=== PATIENT | female | born 1935 | race Caucasian/White ===

== ENCOUNTER 2020-04-17 09:47 | Observation (INO) ==
--- NOTE | 2020-04-17 11:15 | Emergency Department Note ---
Impression & Plan Dizziness, Right arm weakness, Left thalamic infarction ED Provider Note INFORMANT: Patient ED PROVIDER(S): Cameron Clemons MD CHIEF COMPLAINT: Right arm weakness PLAN: Disposition: Admitted Condition: Good MEDICAL DECISION MAKING: Patient presented complaining of vague symptoms but also noting over the last week of having right arm weakness and numbness. She underwent a neurologic work-up. The patient's CBC, chemistry panel, urinalysis were normal. The patient's EKG was a normal sinus rhythm. Cardiac monitoring was unremarkable. CT imaging unfortunately revealed an age-indeterminate left thalamic infarct. Given her symptoms being on the right and finding this possible infarct on the left side further management will be necessary. I discussed the work-up in the hospital with patient and daughter. The patient was given aspirin. [facility] Triage Nursing notes reviewed and agree them. Additional history obtained from patient's daughter. Vital Signs: reviewed and remarkable for no significant abnormalities Differential diagnosis: CVA, TIA, mass, Infection, dehydration, metabolic abnormality, hypo/hyperglycemia, electrolyte disturbance, anemia, hypoxia, cardiac sources, intracerebral event, toxicologic, neurologic, as well as other pathologies. Diagnostics interpreted by me: ECG: Rate: 74 Rhythm:Normal sinus [place]:Normal QRS:Normal ST segements:No elevation or depression Other:No PACs or PVCs Cardiac Monitoring: Cardiac monitoring ordered by me: The patient was placed on continuous cardiac monitoring and observed. It revealed a normal sinus rhythm at 78 beats per minute without ectopy or evidence of dysrhythmia. Imaging studies: Chest x-ray. Findings: A chest x-ray was performed and revealed no pneumothorax, effusion, infiltrate, pulmonary edema, free air under the diaphragm, or wide mediastinum. Head CT: A noncontrast CT scan of the head was performed and was negative for tumor, fracture, intracranial hemorrhage, or other acute pathology. Consultation(s): [facility], Dr. Terry HPI: The patient is a 84 year old female who presents to the Emergency Room with complaints of dizziness. This started months ago and is waxing and waning. The patient also notes the following associated symptoms, right arm weakness over the same period, right 5th finger tingling. The patient has taken no medication for relieving factors. Current pain is rated as 0/10. Called PCP office and directed pt and family to ER for evaluation. Pt denies LOC, headache, fevers, chills, diaphoresis, visual changes, slurred speech, neck pain, chest pain, breathing difficulties, nausea, vomiting, abdominal pain, back pain, melena, hematochezia, urinary symptoms, lymphadenopathy, rash, or other complaints. ROS: See above HPI for pertinent positives & negatives. A total of 10 systems reviewed and were otherwise negative. PAST MEDICAL HISTORY:See Below, tuberculosis, HTN PAST SURGICAL HISTORY:See Below, lung resection FAMILY HISTORY:See Below SOCIAL HISTORY:See Below, lives alone HOME MEDICATIONS:See Below ALLERGIES:See Below VITALS:See Below PHYSICAL EXAMINATION: GENERAL: Awake, alert, age appropriate-appearing, in no distress HENT: Normocephalic, atraumatic. Oropharynx unremarkable. EYES: Normal conjunctiva. Sclera non-icteric. PERRL, EOMI NECK: Inspection normal. Non-tender. Supple. No nuchal rigidity. FROM. No masses. RESPIRATORY: Clear to auscultation. No wheezes. No rales. Normal respiratory effort. CARDIAC: Normal rate. Normal rhythm. No murmurs. No rubs. Extremities warm and well perfused. Pulses equal. No JVD. GI: Soft, non-distended. No tenderness to palpation. No rebound or guarding. No masses. RECTAL: Deferred. MUSCULOSKELETAL: Atraumatic. Chest examination reveals no tenderness. The back is symmetrical on inspection without obvious abnormality. There is no CVA tenderness to palpation. No joint edema. LOWER EXTREMITIES: Calves are equal size bilaterally and non-tender. No edema. No discoloration. NEURO: Normal sensorium. No sensory or motor deficits noted. No drift. SKIN: No rash or jaundice noted. Cameron Clemons MD Past Med/Surg History Social History Smoking Status: Never smoker Preferred Language: Swiss Feels Safe at Home: Yes Allergies Allergies Allergy/AdvReac Type Severity Reaction Status Date / Time No Known Allergies Allergy Unverified 04/17/20 12:08 Home Meds Home Medications Medication Instructions Recorded Confirmed amlodipine 5 mg PO QAM 04/17/20 04/17/20 atorvastatin 10 mg PO QAM 04/17/20 04/17/20 Results & Data (ED) Vital Signs Vital Signs - 24 hr 04/17/20 10:08 04/17/20 11:24 04/17/20 12:20 Temperature 36.3 C L Temperature Source Oral Pulse Rate - Lying 78 Pulse Rate - Sitting 85 Pulse Rate - Standing 95 H Pulse Rate 79 Pulse Rate [Left] 72 Pulse Rhythm Regular Pulse Strength Normal Respiratory Rate 18 20 Respiratory Effort / Characteristics Non-Labored Spontaneous Respiratory Depth Normal Respiratory Pattern Regular Blood Pressure - Lying 171/93 H Blood Pressure - Sitting 161/93 H Blood Pressure- Standing 154/84 H Blood Pressure 165/81 H Blood Pressure [Left Arm] 178/83 H Blood Pressure Mean 109 Blood Pressure Mean [Left Arm] 114 Blood Pressure Position Sitting Pulse Oximetry 97 98 Oxygen Delivery Method Room Air Sepsis Recent Fever Within 48 Hours No Sepsis New/Unexplained Change in Mental Status No Sepsis Action Taken by Nursing No Action Required 04/17/20 13:40 Temperature Temperature Source Pulse Rate - Lying Pulse Rate - Sitting Pulse Rate - Standing Pulse Rate Pulse Rate [Left] 72 Pulse Rhythm Pulse Strength Respiratory Rate 20 Respiratory Effort / Characteristics Respiratory Depth Respiratory Pattern Blood Pressure - Lying Blood Pressure - Sitting Blood Pressure- Standing Blood Pressure Blood Pressure [Left Arm] 160/76 H Blood Pressure Mean Blood Pressure Mean [Left Arm] 104 Blood Pressure Position Pulse Oximetry 98 Oxygen Delivery Method Sepsis Recent Fever Within 48 Hours Sepsis New/Unexplained Change in Mental Status Sepsis Action Taken by Nursing Laboratory Data Result diagrams: 04/17/20 11:15 04/17/20 11:15 Lab Results 04/17/20 04/17/20 04/17/20 Range/Units 11:15 11:15 11:30 WBC 8.26 (4.8-10.8) K/uL RBC 4.75 (4.2-5.4) M/uL Hgb 14.4 (12.0-16.0) g/dL Hct 43.4 (37-47) % MCV 91.4 (80-100) fL MCH 30.3 (25-34) pg MCHC 33.2 (32-36) g/dL RDW Std Deviation 44.3 (36.4-46.3) fL RDW Coeff of Terry 13.2 (11.5-14.5) % Plt Count 212 (130-400) K/uL MPV 10.9 H (7.4-10.4) fL Immature Gran % (Auto) 0.2 % Neut % (Auto) 80.2 % Lymph % (Auto) 13.4 % [place] % (Auto) 5.2 % Eos % (Auto) 0.8 % Baso % (Auto) 0.2 % Neut # (Auto) 6.61 H (1.4-6.5) K/uL Lymph # (Auto) 1.11 L (1.2-3.4) K/uL [place] # (Auto) 0.43 (0.11-0.59) K/uL Eos # (Auto) 0.07 (0-0.5) K/uL Baso # (Auto) 0.02 (0-0.2) K/uL Immature Gran # (Auto) 0.02 (0.00-0.02) K/uL Sodium 136 (136-145) mmol/L Potassium 4.6 (3.5-5.1) mmol/L Chloride 106 (98-107) mmol/L Carbon Dioxide 22 (21-32) mmol/L Anion Gap 8.0 (3-11) BUN 12 (7-18) mg/dl Creatinine 0.94 (0.6-1.2) mg/dl Est Cr Clr Drug Dosing 40.1 ml/min Est GFR ( Amer) 64.6 Est GFR (Non-Af Amer) 55.7 BUN/Creatinine Ratio 12.6 (10-20) Glucose 221 H (70-99) mg/dl Calcium 9.6 (8.5-10.1) mg/dl Magnesium 2.0 (1.8-2.4) mg/dl Total Bilirubin 0.6 (0.2-1) mg/dl AST 22 (15-37) U/L ALT 31 (12-78) U/L Alkaline Phosphatase 98 (45-117) U/L Troponin I < 0.015 (0-0.045) ng/ml Total Protein 7.6 (6.4-8.2) gm/dl Albumin 3.7 (3.4-5.0) gm/dl Globulin 3.9 (2.5-4.0) gm/dl Albumin/Globulin Ratio 0.9 (0.9-2) TSH 2.520 (0.300-4.500) uIu/ml Specimen Hemolysis Urine Color Yellow Urine Appearance Clear (Clear) Urine pH 5.0 (4.5-7.5) Ur Specific [place] 1.025 (1.000-1.030) Urine Protein Negative (Negative) Urine Glucose (UA) 3+ H (Negative) Urine Ketones Negative (Negative) Urine Blood Negative (Negative) Urine Nitrite Negative (Negative) Urine Bilirubin Negative (Negative) Urine Urobilinogen Negative (Negative) Ur Leukocyte Esterase Trace H (Negative) Urine WBC (Auto) 1-5 (0-5) /hpf Urine RBC (Auto) 0-4 (0-4) /hpf U Hyaline Cast (Auto) 1-5 (0-5) /lpf U Epithel Cells (Auto) >30 H (0-5) /lpf Urine Bacteria (Auto) Negative (Negative) Administered Medications Discontinued Medications Aspirin (Aspirin 81 Mg Chew) 324 mg PO NOW STA Stop: 04/17/20 14:06 Last Admin: 04/17/20 14:51 Dose: 324 mg Documented by: [id number] Aspirin (Aspirin Chew 324 Mg) 324 mg PO NOW STA Stop: 04/17/20 14:38 Last Admin: 04/17/20 14:51 Dose: Not Given Documented by: [id number] Discharge Plan Visit Data Chief Complaint: Neuro Symptoms/Deficit Stated Complaint: VERTIGO, RT ARM PAIN, TINGLING RT PINKIE FINGER ED Provider: Cameron Clemons Discharge Problem: Dizziness, Right arm weakness, Left thalamic infarction Forms Stand Alone Forms: My [facility] Prescriptions Prescriptions: No Action atorvastatin 10 mg tablet 10 mg PO QAM RF: 0 amlodipine 5 mg tablet 5 mg PO QAM RF: 0
[2020-04-17 11:40] LABS: Basophils # (auto) 0.02 K/uL (0-0.2); Basophils % (auto) 0.2 %; Eosinophils # (auto) 0.07 K/uL (0-0.5); Eosinophils % (auto) 0.8 %; Hematocrit (blood only) 43.4 % (37-47); Hemoglobin 14.4 g/dL (12.0-16.0); Immature Granulocytes # (auto) 0.02 K/uL (0.00-0.02); Immature Granulocytes % (auto) 0.2 %; Lymphocytes # (auto) 1.11 K/uL (1.2-3.4); Lymphocytes % (auto) 13.4 %; Mean Corpuscular Hemoglobin 30.3 pg (25-34); Mean Corpuscular Hgb Conc 33.2 g/dL (32-36); Mean Corpuscular Volume 91.4 fL (80-100); Mean Platelet Volume 10.9 fL (7.4-10.4); Monocytes # (auto) 0.43 K/uL (0.11-0.59); Monocytes % (auto) 5.2 %; Neutrophils # (auto) 6.61 K/uL (1.4-6.5); Neutrophils % (auto) 80.2 %; Platelet Count 212 K/uL (130-400); RDW Coefficient of Variation 13.2 % (11.5-14.5); RDW Standard Deviation 44.3 fL (36.4-46.3); Red Blood Count 4.75 M/uL (4.2-5.4); White Blood Count 8.26 K/uL (4.8-10.8)
[2020-04-17 11:50] LABS: Appearance Urine Clear (Clear); Bacteria Urine Automated Negative (Negative); Bilirubin Urine Negative (Negative); Blood Urine Negative (Negative); Color Urine Yellow; Epithelial Cell Urine Auto >30 /lpf (0-5); Glucose Urine UA 3+ (Negative); Ketones Urine Negative (Negative); Leukocyte Esterase Urine Trace (Negative); Nitrite Urine Negative (Negative); Protein Urine Negative (Negative); RBC Urine Automated 0-4 /hpf (0-4); Specific Gravity Urine 1.025 (1.000-1.030); Urobilinogen Urine Negative (Negative)
--- NOTE | 2020-04-17 12:07 | XRay Report ---
XR chest 1V portable CLINICAL HISTORY: weakness COMPARISON STUDY: Chest radiograph May 09, 2019. FINDINGS: The patient is rotated. There are suspected postoperative findings within the left hemithor ax. Mild left apical pleural opacity is unchanged. There is no consolidation to suggest pneumonia and there is no evidence for pulmonary edema. Cardiomediastinal silhouette is stable. IMPRESSION: No acute cardiopulmonary findings. No significant change in appearance of the chest. ACT 112: Negative or not required by law. Electronically signed by: Agustin Romero M.D. 04/17/2020 12:06 PM
--- NOTE | 2020-04-17 12:10 | CT Scan Report ---
CT SCAN OF THE BRAIN WITHOUT IV CONTRAST CLINICAL HISTORY: Right-sided weakness. COMPARISON STUDY: No priors. TECHNIQUE: Unenhanced axial CT scan of the brain is performed from the vertex to the skull base. A do se lowering technique was utilized adhering to the principles of ALARA. CT DOSE: 638.56 mGycm FINDINGS: Brain parenchyma: There are age-related involutional changes noting moderate subcortical and periven tricular microangiopathic change. There is no hemorrhage, mass effect, or evidence of acute territori al ischemia by CT criteria. Chronic lacunar infarcts identified in the cerebellum. There is an age in determinant lacunar infarct in the left thalamus. Roberts-white matter differentiation is preserved. No extra-axial fluid collection is seen. Ventricles, sulci, cisterns: Prominent secondary to involutional change. Intracranial vasculature: There is atherosclerotic calcification of the cavernous carotid and vertebr al arteries. Calvarium: Unremarkable. Sinuses and mastoids: The visualized paranasal sinuses are clear. The mastoid air cells are well pneu matized. Orbits: The bony orbits are grossly intact. IMPRESSION: 1 There is no hemorrhage, mass effect, or evidence of acute territorial ischemia by CT criteria. 2. There is an age indeterminant lacunar infarct in left thalamus. ACT 112: Negative or not required by law. Electronically signed by: Arron Nicholas M.D. 04/17/2020 12:08 PM
[2020-04-17 12:17] LABS: Alanine Aminotransferase 31 U/L (12-78); Albumin Globulin Ratio 0.9 (0.9-2); Albumin Level 3.7 gm/dl (3.4-5.0); Alkaline Phosphatase 98 U/L (45-117); Aspartate Aminotransferase 22 U/L (15-37); BUN Creatinine Ratio 12.6 (10-20); Bilirubin,Total 0.6 mg/dl (0.2-1); Blood Urea Nitrogen 12 mg/dl (7-18); Calcium 9.6 mg/dl (8.5-10.1); Carbon Dioxide 22 mmol/L (21-32); Chloride 106 mmol/L (98-107); Creatinine Clr Calc Pharmacy 40.1 ml/min; Est GFR (African American) 64.6; Est GFR (Non-African American) 55.7; Globulin 3.9 gm/dl (2.5-4.0); Glucose 221 mg/dl (70-99); Potassium 4.6 mmol/L (3.5-5.1); Sodium 136 mmol/L (136-145); Total Protein 7.6 gm/dl (6.4-8.2); Troponin I < 0.015 ng/ml (0-0.045)
[2020-04-17] MEDS ORDERED: ASPIRIN 81 MG CHEW PO STA (14:05)
[2020-04-17] MEDS ORDERED: ASPIRIN 81 MG ECTAB PO STA (14:05)
[2020-04-17] MEDS ORDERED: ASPIRIN CHEW 324 MG PO STA (14:37)
--- NOTE | 2020-04-17 15:22 | History & Physical Report ---
Date of Service April 17, 2020 Assessment & Plan (1) Left thalamic infarction: Unclear when she had her stroke. Given worsening of her balance suddenly yesterday we will for a full stroke work-up. CTA head and neck MRI without contrast TTE HbA1c and lipid panel in a.m. Aspirin 324 mg p.o. given in ER. Start 81 mg p.o. daily. Continue her usual atorvastatin 10 mg p.o. every morning pending LDL in a.m. High intensity statin not required due to advanced age. PT/OT/speech eval Consult neurology (2) Right arm weakness: Suspect secondary to above. Suspect arm pain is secondary to weakness and likely she had a stroke like events 6 months ago and possibly additional one 2 months ago. (3) Imbalance: Suspect secondary to left thalamic infarction above. We will also get B12 level in a.m. to rule this out as a cause. 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 Not currently present on exam. Possibly related to left thalamic infarction as well. (5) Hyperglycemia: HbA1c with a.m. labs No known diagnosis of diabetes but also has glucosuria in urine. BSG ACHS. Insulin sliding scale for correction only (6) Hypertension: Continue amlodipine 5 mg p.o. every morning Hydralazine 5 mg IV every 4 hourly as needed for systolic blood pressure > 180. (7) Hyperlipidemia: Continue atorvastatin as above (8) DVT prophylaxis: Falls risk with her imbalance therefore no SCDs. Given ambulatory and currently at baseline will defer chemical prophylaxis. Admission and Anticipated Discharge Date Admission Date: April 17, 2020 History of Present Illness Chief Complaint: Imbalance, right hand change in sensation, right arm weakness Primary Care Provider: JUAN PABLO Fletcher Milady Alexandre is an 84-year-old female who presents to the ER with her daughter due to dizziness and ataxia. The patient has short term memory loss therefore history is taken mostly from her daughter. Initial symptoms of ataxia and dizziness occurring intermittently for the last 6 months but getting more frequently recently. Had a sudden worsening episode yesterday while walking. No lightheadedness, dizziness or vertigo just appeared to be off balance. Therefore she called her PCP office today who recommended she came to the ER for further evaluation. Associated symptom of right arm weakness/pain over a similar time frame which also appears to be getting worse but also intermittent. Finding it more difficult to carry anything. She has been to see Dr Kilpatrick in neurology clinic due to some short term memory loss approximately 2 months ago but her symptoms have significantly progressed since this. In the last 2 weeks she has been having new right fifth finger numbness/tingling. Currently however she denies any right arm pain or numbness/tingling in her fingers. When she is off balance she does not appear to be falling to one side. No change in hearing, vision, speech, headache, fever or chills. SHe lives alone but has close family support from her daughter. Allergies Allergy/AdvReac Type Severity Reaction Status Date / Time No Known Allergies Allergy Unverified 04/17/20 12:08 Home Medications Home Medications Medication Instructions Recorded Confirmed Type amlodipine 5 mg PO QAM 04/17/20 04/17/20 History aspirin 81 mg PO DAILY #30 tab 04/18/20 Rx atorvastatin 20 mg PO DAILY #30 tab 04/18/20 Rx clopidogrel 75 mg PO DAILY 21 Days #21 tab 04/18/20 Rx cyanocobalamin (vitamin B-12) 1,000 mcg PO DAILY #30 cap 04/18/20 Rx metformin 1,000 mg PO BID #120 tab 04/18/20 Rx Past Med/Surg History Medical History (Updated 04/19/20 @ 00:03 by Background Saw) Hyperlipidemia Hypertension Type 2 diabetes mellitus Social History Smoking Status: Never smoker Hx Alcohol Use: No Hx Substance Use: No Preferred Language: Korean Communication Ability: Effective Classification Case Manager Required: No Beliefs That Will Affect Care: None marital status: Unknown Current Living Situation: Alone Current Living Situation Comment: Lives at home alone, daughter helps with care Other Information That Helps Us Care for You: No Feels Safe at Home: Yes Safety Concerns: Feels Safe At This Time Assistive Devices: None Assistive Devices Comment: Upper partial Review of Systems Review of Systems: All systems reviewed & are unremarkable except as noted in HPI & below Physical Exam Constitutional: WD/WN, vitals as above Eyes: PERRL, conjunctivae normal, anicteric sclerae ENMT: external ear and nose normal, oropharynx normal Neck: trachea midline, no thyromegaly Respiratory: normal respiratory effort, lungs clear to auscultation Cardiovascular: RRR, no murmur, no edema Gastrointestinal (Abdomen): normal bowel sounds, soft, nontender, no hepatosplenomegaly Musculoskeletal: no cyanosis or clubbing, extremities motor strength 5/5 Skin: no rashes, warm and dry Neurologic: patellar DTR's 2+ bilat, sensation intact CN's II-XI intact bilaterally, moves all extremities, + focal motor deficit (proximal RUE weakness) and awake; not confused Motor/Sensory: + pronator drift (RUE weakness); no tremor and no sensory deficit Coordination: + abnormal [id number] test (RUE weakness) Psychiatric: Orientation: alert and oriented x 3 Eye Contact: good eye contact Speech: normal rate/rhythm/volume of speech Affect: euthymic affect Genitourinary: no CVA tenderness Lymphatic: no cervical or axillary lymphadenopathy Results & Data Results & Data ([facility] Vital Signs (Past 12 Hours) Vital Signs Temp Pulse Pulse Resp BP BP Pulse Ox 04/17/20 13:40 72 20 160/76 H 98 04/17/20 11:24 72 20 178/83 H 98 04/17/20 10:08 36.3 C L 79 18 165/[address] SCAN OF THE BRAIN WITHOUT IV CONTRAST IMPRESSION: 1 There is no hemorrhage, mass effect, or evidence of acute territorial ischemia by CT criteria. 2. There is an age indeterminant lacunar infarct in left thalamus. XR chest 1V portable IMPRESSION: No acute cardiopulmonary findings. No significant change in appearance of the chest. ECG Indication: other (Dizziness) Rate (beats per minute): 74 Rhythm: normal sinus Findings: no acute ischemic change Comparison ECG Date: no prior available Code Status & VTE Plan Code Status Full VTE Prophylaxis Plan VTE Prophylaxis will be ordered: Yes PG Care Time/CCT Total # of Minutes Spent Total Time Spent with Patient: Total time spent is greater than 50% in coordination of care (as documented) at patient's floor/unit and/or counseling patient: Coding Level of Care Code 53944 Initial Inpt Care Lvl 3 Diagnoses Left thalamic infarction I63.9 Right arm weakness R29.898 Imbalance R26.89 Neuropathy of finger of right hand G56.91 Hyperglycemia R73.9 Hypertension I10 Hyperlipidemia E78.5 DVT prophylaxis Z29.9
[2020-04-17] MEDS ORDERED: ACETAMINOPHEN 325 MG TAB PO PRN (16:29)
[2020-04-17] MEDS ORDERED: PHARMACIST DISCHARGE MED REC CONSULT PRN (16:29)
[2020-04-17] MEDS ORDERED: ONDANSETRON INJ 2 MG/ML 2 ML VIAL IV PRN (16:29)
[2020-04-17] MEDS ORDERED: GLUCOSE 10 TABS/TUBE PO PRN (17:44)
[2020-04-17] MEDS ORDERED: DEXTROSE 50% 50 ML SYRINGE IV PRN (17:44)
[2020-04-17] MEDS ORDERED: CARBOHYDRATES FOR HYPOGLYCEMIA PO PRN (17:44)
[2020-04-17] MEDS ORDERED: GLUCAGON FOR INJ 1 MG VIAL SQ PRN (17:44)
[2020-04-17] MEDS ORDERED: GLUCOSE 40% GEL 15 GM TUBE PO PRN (17:44)
[2020-04-17] MEDS ORDERED: OPTIRAY 320 125ml IV ONE (18:49)
--- NOTE | 2020-04-17 19:23 | CT Scan Report ---
CT angio neck with con CLINICAL HISTORY: Thalamic stroke COMPARISON STUDY: No previous studies for comparison. TECHNIQUE: CT angiography was performed from the aortic arch to the skull base. MIP imaging was perfo rmed. The patient was scanned in a dynamic helical fashion during intravenous administration of 120 c c of Optiray 320. A dose lowering technique was utilized adhering to the principles of ALARA. CT DOSE: Technique: CT angiogram of the carotid and vertebral arteries was obtained using intravenous contrast and 3-D reconstruction. NASCET criteria was utilized. Findings: There is mild ectasia of the thoracic aortic arch The right carotid revealed no evidence of aneurysm and no evidence of dissection. There is no evidenc e of hemodynamic significant stenosis. The left carotid revealed no evidence of hemodynamic significant stenosis. There is no evidence of an eurysm. There is no evidence of dissection. There is a 40% diameter stenosis of the left vertebral at the level of the foramen magnum. There is n o evidence of right vertebral artery stenosis. There is a multinodular thyroid gland IMPRESSION: 1. No evidence of hemodynamically significant carotid stenosis 2. 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 ACT 112: Negative or not required by law. Electronically signed by: Adan Forrest M.D. 04/17/2020 7:21 PM
--- NOTE | 2020-04-17 19:25 | CT Scan Report ---
CT angio head w con CLINICAL HISTORY: Left lacunar thalamic stroke TECHNIQUE: CT angiography of the head was performed in a dynamic helical fashion during intravenous a dministration of 120 cc of Optiray 320. MIP imaging was performed. A dose lowering technique was util ized adhering to the principles of ALARA. CT DOSE: 860.42 mGycm COMPARISON STUDY: No previous studies for comparison. FINDINGS: There are no lesion suspicious for aneurysm. There are no major intracranial branch occlusi ons. The dural venous sinuses appear patent. There is a 40% stenosis of the left vertebral the level the foramen magnum. IMPRESSION: 1. 40% diameter stenosis of the distal left vertebral artery 2. No evidence of aneurysm. No evidence of major intracranial branch occlusion. ACT 112: Negative or not required by law. Electronically signed by: Adan Forrest M.D. 04/17/2020 7:24 PM
--- NOTE | 2020-04-17 20:59 | Magnetic Resonance Report ---
MRI OF THE BRAIN WITHOUT CONTRAST CLINICAL HISTORY: Right arm weakness COMPARISON STUDY: CT scan dated 04/17/2020 FINDINGS: Sagittal T1, axial diffusion, proton density and T2 weighted axial, coronal FLAIR, and axial T1-weigh kendrick images were acquired. No intra or extra-axial mass lesions are visualized There is a 6 mm focus of restricted water diffusion within the left thalamus, consistent with a small acute/subacute infarct. There is no evidence of ventricular dilatation. Proton density T2-weighted and FLAIR images reveal scattered foci of increased T2 signal within the w go matter, likely on a small vessel basis. There are old bilateral cerebellar infarcts. There is al so a subtle focus of increased FLAIR signal within the left parietal subcortical white matter possibl y secondary to remote infarct There are no abnormal flow voids. IMPRESSION: 1. Small focus of restricted water diffusion within the left thalamus indicative of a small acute/sub acute infarct 2. Old cerebellar infarcts 3. White matter disease, likely on a small vessel ischemic basis ACT 112: Negative or not required by law. Electronically signed by: Adan Forrest M.D. 04/17/2020 8:58 PM
[2020-04-17] MEDS: INSULIN ASPART 100 UNITS/ML 3 ML PEN SC SCH (21:19)
[2020-04-17] MEDS ORDERED: HydrALAZINE HCL 20 MG/ML VIAL IV PRN (22:34)
--- NOTE | 2020-04-17 23:00 | Electrocardiogram Report ---
Test Reason : Blood Pressure : / mmHG Vent. Rate : 074 BPM Atrial Rate : 074 BPM P-R Int : 134 ms QRS Dur : 082 ms QT Int : 382 ms P-R-T Axes : 049 061 021 degrees QTc Int : 424 ms Poor data quality, interpretation may be adversely affected Normal sinus rhythm Possible Inferior infarct , age undetermined Abnormal ECG No previous ECGs available Confirmed by Nick Perales ([id number]) on 04/17/2020 11:00:39 PM Referred By: REFERRED SELF Confirmed By:Nick Perales
[2020-04-18] MEDS ORDERED: PERFLUTREN LIPID MICROSPHERE (DEFINITY) IV ONE (07:37)
[2020-04-18 08:22] LABS: Hematocrit (blood only) 41.5 % (37-47); Hemoglobin 14.1 g/dL (12.0-16.0); Mean Corpuscular Hemoglobin 30.9 pg (25-34); Mean Platelet Volume 10.2 fL (7.4-10.4); Platelet Count 350 K/uL (130-400); RDW Coefficient of Variation 13.4 % (11.5-14.5); RDW Standard Deviation 43.9 fL (36.4-46.3); Red Blood Count 4.56 M/uL (4.2-5.4); White Blood Count 8.66 K/uL (4.8-10.8)
[2020-04-18] MEDS: INSULIN ASPART 100 UNITS/ML 3 ML PEN SC SCH (08:26)
[2020-04-18 08:47] LABS: Estimated Average Glucose 223 mg/dl; Hemoglobin A1C 9.4 % (4.5-5.6)
[2020-04-18 08:49] LABS: Basophils # (auto) 0.01 K/uL (0-0.2); Basophils % (auto) 0.1 %; Eosinophils # (auto) 0.14 K/uL (0-0.5); Eosinophils % (auto) 1.6 %; Immature Granulocytes # (auto) 0.01 K/uL (0.00-0.02); Immature Granulocytes % (auto) 0.1 %; Lymphocytes # (auto) 1.54 K/uL (1.2-3.4); Lymphocytes % (auto) 17.8 %; Monocytes # (auto) 0.65 K/uL (0.11-0.59); Monocytes % (auto) 7.5 %; Neutrophils # (auto) 6.31 K/uL (1.4-6.5); Neutrophils % (auto) 72.9 %
[2020-04-18 08:58] LABS: BUN Creatinine Ratio 14.6 (10-20); Calcium 9.8 mg/dl (8.5-10.1); Creatinine Clr Calc Pharmacy 39.7 ml/min; Est GFR (African American) 67.1; Est GFR (Non-African American) 57.9; Potassium 4.6 mmol/L (3.5-5.1)
[2020-04-18] MEDS ORDERED: AMLODIPINE BESYLATE 5 MG TAB PO SCH (09:00)
[2020-04-18] MEDS ORDERED: ATORVASTATIN 10 MG TAB PO SCH (09:00)
[2020-04-18] MEDS ORDERED: ASPIRIN 81 MG ECTAB PO SCH (09:00)
[2020-04-18] MEDS ORDERED: INSULIN GLARGINE SOLOSTAR 100 UNITS/ML 3 ML PEN SC SCH (09:30)
[2020-04-18] MEDS ORDERED: INSULIN ASPART 100 UNITS/ML 3 ML PEN SC SCH (11:30)
--- NOTE | 2020-04-18 11:41 | Consultation Report ---
DATE OF CONSULTATION: 04/18/2020 NEUROLOGY CONSULTATION NOTE CHIEF COMPLAINT: Ataxia. HISTORY OF PRESENT ILLNESS: An 84-year-old woman who presented to the Emergency Department yesterday with complaint of dizziness and balance issues. Symptoms started months ago and seemed to wax and wane. She also noted right arm weakness over the same period with numbness and tingling in the fourth and fifth digit of the right hand. She denied any pain. No relieving factors. She did call her PCP's office yesterday and recommended they go to the Emergency Department for further evaluation. She denies any loss of consciousness, headache, fever, chills, diaphoresis, visual changes, slurred speech, neck pain, chest pain, nausea, vomiting, abdominal pain, back pain. CT head imaging was performed in the Emergency Department yesterday which showed evidence of a prior thalamic stroke of indeterminate age. The patient was admitted for further evaluation. Neurology was consulted due to concern for stroke. ALLERGIES: No known allergies. HOME MEDICATIONS: Include Norvasc 5 mg daily and atorvastatin 10 mg daily. PAST MEDICAL HISTORY: Hyperlipidemia and hypertension. PAST SURGICAL HISTORY: Reviewed. No recent surgeries or pertinent surgeries. FAMILY HISTORY: Reviewed. No known pertinent family history. SOCIAL HISTORY: She is a nonsmoker. Denies alcohol. She lives at home by herself. REVIEW OF SYSTEMS: A 15-point review of systems was performed. Review of systems was positive for balance problems, right arm weakness, numbness. PHYSICAL EXAMINATION: VITAL SIGNS: Blood pressure 135/71 mmHg, pulse is 66, respiratory rate is 17, temperature is 36.5 degrees Celsius, oxygen saturation is 95% on room air. GENERAL: The patient appears normally developed and appears stated age, no distress. HEENT: Normocephalic and atraumatic. Normal eyelids and normal conjunctivae. NECK: Supple. LUNGS: Respiratory rate is normal. CARDIOVASCULAR: Normal pulses. ABDOMEN: Nondistended. SKIN: No rash noted. PSYCHIATRIC: Normal mood and affect. NEUROLOGIC: She is awake, alert and oriented to person, place, and time. Attention is normal. Knowledge is appropriate. Comprehension is intact and she can repeat. No dysarthria. No visual defect on confrontation. Pupils are round and symmetric. Extraocular muscles are intact. No facial asymmetry. Hearing intact. Palate symmetric. Shoulder shrug is normal. Tongue is midline. Gait is wide based. Coordination: mild ataxia with finger to nose testing on the right. Sensory is intact to light touch. Muscle tone is normal, 5/5 throughout on muscle examination except for right arm weakness in the shoulder abduction, biceps, and interosseous 4/5.No ankle clonus, Yumi sign is negative. DIAGNOSTIC TESTING AND LABORATORY VALUES: WBC 8.66, hemoglobin 14.1, platelet count is 350. Sodium 139, potassium 4.6, chloride 105, carbon dioxide 27, BUN is 13, creatinine 0.91, glucose is elevated at 191. Hemoglobin A1c is 9.4. LDL cholesterol is 87. Urinalysis shows clear fluid, 3+ glucose, trace leukocyte esterase and 30 epithelial cells. IMAGING: Head CT noncontrast: There is no hemorrhage, mass effect, or evidence of acute ischemia. There is an age indeterminate lacunar infarct in the left thalamus. Head and neck CTA shows 40% diameter stenosis of the distal left vertebral artery. No evidence of aneurysm. No evidence of major intracranial branch occlusion. MRI of the brain without contrast shows a small focus of restricted water diffusion within the left thalamus indicative of a small acute subacute infarct. Old cerebellar infarcts. White matter disease, likely on a small vessel ischemic basis. ASSESSMENT AND PLAN: An 84-year-old woman with history of hypertension and hyperlipidemia and newly diagnosed type 2 diabetes (HA1c 9), admitted with an acute to subacute left thalamic stroke. Semiology of the stroke is consistent with a small vessel ischemic stroke, likely due to risk factors previously mentioned. Systolic blood pressure goal is less than 140, diastolic blood pressure goal is less than 90 mmHg. Recommend starting dual antiplatelet therapy, aspirin 81 mg daily and Plavix 75 mg daily for 21 days and then deescalating to aspirin 81 mg daily and continuing. Would recommend increasing Lipitor to 40 mg daily. Hemoglobin A1c goal is less than 7. Would obtain a transthoracic echocardiogram while inpatient and continue telemetry while inpatient. Physical therapy, occupational therapy and speech therapy for rehabilitation needs for right arm weakness. The patient has follow up scheduled with Dr. Jean in April. Please contact me with any additional questions or concerns. In regards to the numbness in her right hand in the ulnar distribution can consider EMG for further evaluation as an outpatient. I discussed and reviewed her CT head and MRI brain with patient and daughter at bedside. Thank you for allowing me to participate in her care. DILIP
--- NOTE | 2020-04-18 12:27 | XCELERA ---
[id number]
[2020-04-18] MEDS ORDERED: CLOPIDOGREL BISULFATE 75 MG TAB PO ONE (13:45)
--- NOTE | 2020-04-18 14:16 | Discharge Summary ---
Date of Service April 18, 2020 Admission HPI Per Admitting Provider Milady Alexandre is an 84-year-old female who presents to the ER with her daughter due to dizziness and ataxia. The patient has short term memory loss therefore history is taken mostly from her daughter. Initial symptoms of ataxia and dizziness occurring intermittently for the last 6 months but getting more frequently recently. Had a sudden worsening episode yesterday while walking. No lightheadedness, dizziness or vertigo just appeared to be off balance. Therefore she called her PCP office today who recommended she came to the ER for further evaluation. Associated symptom of right arm weakness/pain over a similar time frame which also appears to be getting worse but also intermittent. Finding it more difficult to carry anything. She has been to see Dr Kilpatrick in neurology clinic due to some short term memory loss approximately 2 months ago but her symptoms have significantly progressed since this. In the last 2 weeks she has been having new right fifth finger numbness/tingling. Currently however she denies any right arm pain or numbness/tingling in her fingers. When she is off balance she does not appear to be falling to one side. No change in hearing, vision, speech, headache, fever or chills. SHe lives alone but has close family support from her daughter. Admission Exam Per Admitting Provider Constitutional: WD/WN, vitals as above Eyes: PERRL, conjunctivae normal, anicteric sclerae ENMT: external ear and nose normal, oropharynx normal Neck: trachea midline, no thyromegaly Respiratory: normal respiratory effort, lungs clear to auscultation Cardiovascular: RRR, no murmur, no edema Gastrointestinal (Abdomen): normal bowel sounds, soft, nontender, no hepatosplenomegaly Musculoskeletal: no cyanosis or clubbing, extremities motor strength 5/5 Skin: no rashes, warm and dry Neurologic: patellar DTR's 2+ bilat, sensation intact CN's II-XI intact bilaterally, moves all extremities, + focal motor deficit (proximal RUE weakness) and awake; not confused Motor/Sensory: + pronator drift (RUE weakness); no tremor and no sensory deficit Coordination: + abnormal xflzct-mo-rohp test (RUE weakness) Psychiatric: Orientation: alert and oriented x 3 Eye Contact: good eye contact Speech: normal rate/rhythm/volume of speech Affect: euthymic affect Genitourinary: no CVA tenderness Lymphatic: no cervical or axillary lymphadenopathy Principal Diagnosis Left lacunar thalamic stroke Type 2 diabetes mellitus Vitamin B12 deficiency Discharge Exam Patient feeling at her baseline. Walking around the hightower without difficulty. Daughter keen to get the patient home. Constitutional WD/WN, vitals as above ENMT external ear and nose normal, oropharynx normal Respiratory normal respiratory effort, lungs clear to auscultation Cardiovascular RRR, no murmur, no edema Neurologic moves all extremities, + focal motor deficit (proximal RUE weakness, mild reduced chart writer strength) and awake; not confused Motor/Sensory: no tremor Coordination: + abnormal ihzibx-gb-vwkc test (RUE weakness) Psychiatric Orientation: alert and oriented x 3 Genitourinary no CVA tenderness Discharge Data Allergies Allergy/AdvReac Type Severity Reaction Status Date / Time No Known Allergies Allergy Unverified 04/17/20 12:08 Consultations 04/17/20 14:37 ED Decision to Admit Stat 04/17/20 16:29 Consult Case Management - Discharge Planning Routine Consult Neurology Routine 04/17/20 17:45 Consult Health Information Management Routine Ordered Studies 04/17/20 11:15 CT head/brain wo con Stat IMPRESSION: 1 There is no hemorrhage, mass effect, or evidence of acute territorial ischemia by CT criteria. 2. There is an age indeterminant lacunar infarct in left thalamus. 04/17/20 16:29 MR brain wo con Routine IMPRESSION: 1. Small focus of restricted water diffusion within the left thalamus indicative of a small acute/subacute infarct 2. Old cerebellar infarcts 3. White matter disease, likely on a small vessel ischemic basis 04/17/20 17:48 CT angio head w con Routine IMPRESSION: 1. 40% diameter stenosis of the distal left vertebral artery 2. No evidence of aneurysm. No evidence of major intracranial branch occlusion. 04/17/20 17:49 CT angio neck with con Routine IMPRESSION: 1. No evidence of hemodynamically significant carotid stenosis 2. 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 Hospital Course (1) Left thalamic infarction: Milady Alexandre is an 84 year old female admitted to [facility] from April 17-2019 due to sudden onset loss of balance. Subsequent imaging confirmed left thalamic ischemic stroke suspected to be the cause of her symptoms. She also has multiple old cerebellar infarcts. Reviewed by [facility] neurology and recommended clopidogrel for 21 days and aspirin indefinitely. Atorvastatin increased from 10 -> 20mg given good LDL levels although not at goal < 70 (cuurently 87). Suspect caused by small vessel atherosclerotic disease. No atrial fibrillation on telemetry and no thrombus on echocardiogram. Suspect this stroke also causing her right arm proximal weakness and possibly tingling in your right fourth and fifth fingers although she will follow up with neurology for possible EMG/NCS as follow up for this. As part of her work-up she was noted to have elevated glucose and HbA1C 9.4. Treated with insulin during inpatient stay but transitioned to metformin up titrating dose of metformin on discharge. She was instructed to follow up with her PCP with regards to ongoing treatment of this. Blood pressure medications with amlodipine appears adequate at the current time.. As part of her work-up for ataxia she had B12 level of 353 pg/ml. Given ataxia and B12 < 400 recommend supplementation as below. Referral has been made to [facility] home health for continued PT/OT/nursing care. Kind regards, Dr. 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: (5) Hyperglycemia: (6) Hypertension: (7) Hyperlipidemia: (8) Type 2 diabetes mellitus: Total Time Total Time Spent Total Time Spent (In Minutes): 40 Total Time Includes: Examination of the Patient, Discharge Planning, Medication Reconciliation and Communication With Other Providers Discharge Plan Discharge Items Patient Disposition: Home - Self-Care Reason For Visit: CVA Discharge Diagnosis: Left lacunar thalamic stroke Diabetes Vitamin B12 deficiency Activity: Resume your previous activity Non-emergency contact: Primary Care Provider Call non-emergency contact if: you have any medication questions and your symptoms worsen Follow-up/Referrals: Evelina Wang CRNP [Primary Care Provider] - (1-2 weeks, T2DM follow up) Diet: Carb Consistent or DM2 and Heart Healthy Addtl Attending Provider Instructions: You were admitted to [facility] from April 17-2019 due to sudden onset loss of balance. Imaging suggestive of a left lacunar thalamic stroke as the cause of your symptoms. Suspect this is caused by small vessel plaque disease. No atrial fibrillation on telemetry and no thrombus on echocardiogram. Suspect this stroke is also causing your right arm weakness and possibly tingling in your right fourth and fifth fingers although recommend following up with your neurologist as previously arranged for consideration of nerve conduction studies to further assess this. As part of your work-up you had a B12 level 353 pg/ml. Since this is < 400 and you are having problems with your balance recommend supplementation as prescribed below. You were reviewed by neurology (Dr. White) who recommended starting aspirin and clopidogrel for 21 days and then continue on aspirin alone indefinitely after this. Also recommended increasing your atorvastatin although given your age, weight and low-density cholesterol levels I would recommend only increasing this to 20 mg as precribed. As part of your work-up you were noted to have type 2 diabetes mellitus (HbA1c 9.4). For this you were treated with insulin during her inpatient stay. However due to risk of hypoglycemia with insulin we will initially start you on metformin which she should continually titrate up as prescribed. Take 500 mg every morning for 3 days, then 500 mg twice daily for 3 days, then 1000 mg twice daily. Most common side effect of this medication is gastrointestinal upset such as diarrhea or cramping. This is a dose related side effect. If you experience this go back down to the highest dose you did not have the side effect and continue to up titrate more slowly. You are likely to need additional medications to manage your diabetes. Please follow-up with your primary care provider in 1 to 2 weeks for further management of this. Your blood pressure medication (amlodipine) appears adequate for cardiovascular risk reduction at the current time. Referral has been made to [facility] home health for continued PT/OT/nursing care. Kind regards, Dr. Lobo Terry Pending Studies at Discharge: No Stand-Alone Forms: Medications to Prevent Stroke, [facility] Medications and DC Order Prescriptions: New clopidogrel 75 mg tablet 75 mg PO DAILY 21 Days Qty: 21 RF: 0 aspirin 81 mg tablet,delayed release (DR/EC) 81 mg PO DAILY Qty: 30 RF: 0 metformin 500 mg tablet extended release 24hr 1,000 mg PO BID Qty: 120 RF: 0 atorvastatin 20 mg tablet 20 mg PO DAILY Qty: 30 RF: 0 cyanocobalamin (vitamin B-12) 1,000 mcg capsule 1,000 mcg PO DAILY Qty: 30 RF: 0 Continued amlodipine 5 mg tablet 5 mg PO QAM RF: 0 Discontinued atorvastatin 10 mg tablet 10 mg PO QAM RF: 0 Discharge Orders: Discharge Order (Routine); Ordered 04/18/20 Ordered By: Lobo Sanchez/Other Patient Handouts: Managing Type 2 Diabetes, Discharge Instructions for Stroke, Managing Diabetes: The A1C Test, Stroke Prevent Another Caregiver, Taking Medicine for Diabetes, Understanding Type 2 Diabetes, ED Diet: Diabetes Admission Data Admit Date/Time: 04/17/20 14:04 Attending Provider: Lobo Terry Admit Provider: Lobo eTrry Primary Care Provider: Evelina Wang Other Providers: Lobo Terry ; Rojas White ; [facility],Home Health Other Interventions: Discharge Summary Assessment (RN) Last Done: 04/18/20 14:24 Coding Level of Care Code D/C Day Management >30 mins Diagnoses Left thalamic infarction I63.9 Right arm weakness R29.898 Imbalance R26.89 Neuropathy of finger of right hand G56.91 Hyperglycemia R73.9 Hypertension I10 Hyperlipidemia E78.5 Type 2 diabetes mellitus E11.9
[2020-04-18] MEDS ORDERED: STROKE PATIENT DISCHARGE STA (14:21)
--- NOTE | 2020-04-18 15:08 | Pharmacy Report ---
Pharmacist Stroke Counseling - Date of Service April 18, 2020 - Scope: Pharmacy has been consulted to provide medication discharge counseling for this patient admitted with probable ischemic stroke as per the Pharmacist Discharge Counseling for Stroke Patients Protocol. - Medications on Discharge: Home Medications Medication Instructions Recorded Confirmed amlodipine 5 mg PO QAM 04/17/20 04/17/20 New Rx's Medication Instructions Recorded aspirin 81 mg PO DAILY #30 tab 04/18/20 atorvastatin 20 mg PO DAILY #30 tab 04/18/20 clopidogrel 75 mg PO DAILY 21 Days #21 tab 04/18/20 cyanocobalamin (vitamin B-12) 1,000 mcg PO DAILY #30 cap 04/18/20 metformin 1,000 mg PO BID #120 tab 04/18/20 - Action: The above medications, specifically ones for stroke treatment/prophylaxis, have been reviewed in detail with the patient and/or patient small business representative(s) prior to discharge. This includes indication, common adverse reactions, drug interactions, and medication administration. Medication counseling has been employed using the teach-back method to ensure understanding. - Outcome: The patient and/or patient small business representative(s) have demonstrated understanding of the medications. Additional comments: Spoke with patient's daughter, Sherron, over the phone. Thank you for allowing pharmacy to be involved in the care of this patient. Please call [phone] with any additional questions
[2020-04-19] MEDS ORDERED: CLOPIDOGREL BISULFATE 75 MG TAB PO SCH (09:00)
== END 2020-04-18 15:43 | disposition home or self-care (01) ==
LOC: ED 09:47 → 2W 14:04 → INTOOBSV 14:04 → 2W 16:00